=== PATIENT | female | born 1945 | race Hispanic/Latino ===

== ENCOUNTER → 2016-08-31 | Outpatient (CLI) | payer MEDICARE | END | disposition home or self-care (01) | LOC: GMAB 10:23 | PROVIDERS: ATTEND Family Medicine | DX: D50.9 Iron deficiency anemia, unspecified (principal); E53.8 Deficiency of other specified B group vitamins; I10 Essential (primary) hypertension; M54.10 Radiculopathy, site unspecified; Z79.891 Long term (current) use of opiate analgesic ==

== ENCOUNTER → 2017-03-01 | Outpatient (CLI) | payer MEDICARE ==
--- NOTE | 2017-03-03 14:15 | MAM ---
EXAM DESCRIPTION: 3D Screening BILATERAL : Digital Mammography. CLINICAL HISTORY: 71 years Female SCREENING . No complaints. No family history of breast cancer. Postmenopausal. No HRT. Bilateral cyst aspirations.. COMPARISON: 2-D digital screening bilateral studies 02/17/2016 and 12/06/2014. Report from prior examination also reviewed. TECHNIQUE: Bilateral CC and MLO projection full-field images, 3-D tomosynthesis digital mammographic technique. Also bilateral synthesized CC/ MLO full-field images. CAD not utilized. FINDINGS: The breast parenchymal density pattern is: Scattered areas of fibroglandular density. No skin thickening or nipple retraction bilateral solitary microcalcifications. Left axillary lymph nodes. Biopsy site marker 1200 clock position middle third left breast. Bilateral vascular calcifications. No focal, stellate mass or density, focal asymmetry , and no suspicious microcalcifications bilaterally. Stable mammograms compared to prior study, taking into account differences in mammographic technique IMPRESSION: BI-RADS CATEGORY: 2 - BENIGN FINDINGS. FOLLOW UP: Routine digital bilateral screening, one year interval from February 2017. Written communication explaining the IMPRESSION and follow-up, will be mailed to the patient and referring health care provider. According to the [employer], yearly mammograms are recommended starting at age 40 and continuing as long as a woman is in good health. Any breast change noted on a breast self-exam should be reported promptly to the patient's healthcare provider. Breast MRI is recommended for women with an approximately 20-25% or greater lifetime risk of breast cancer, including women with a strong family history of breast or ovarian cancer and women who have been treated for Hodgkin's disease. A negative mammographic report should not delay tissue diagnosis in patients with significant clinical history or physical findings. Extremely dense breast tissue limits the sensitivity of digital mammography. 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
== END ==
LOC: MAMMO 13:30
PROVIDERS: ATTEND Family Medicine
DX: Z12.31 Encounter for screening mammogram for malignant neoplasm of breast (principal)
CPT/HCPCS: 77063; G0202

== ENCOUNTER → 2017-03-02 | Outpatient (CLI) | payer MEDICARE | END | disposition home or self-care (01) | LOC: GMAB 10:44 | PROVIDERS: ATTEND Family Medicine | DX: D50.9 Iron deficiency anemia, unspecified (principal) ==

== ENCOUNTER → 2017-08-30 | Outpatient (CLI) | payer MEDICARE | LOC: GMAB 10:35 | PROVIDERS: ATTEND Family Medicine | DX: I10 Essential (primary) hypertension (principal) ==

== ENCOUNTER → 2017-11-30 | Outpatient (CLI) | payer MEDICARE | LOC: GMAE 10:44 | PROVIDERS: ATTEND Family Medicine | DX: R06.02 Shortness of breath (principal) ==

== ENCOUNTER → 2018-03-03 | Outpatient (CLI) | payer MEDICARE ==
--- NOTE | 2018-03-03 09:36 | US ---
US THYROID CLINICAL STATEMENT: NODULE. COMPARISON: None FINDINGS: Size right thyroid lobe: 3.9 x 1.6 x 1.2 cm Size left thyroid lobe: 3.7 x 1.6 x 1.3 cm Size isthmus: 0.2 cm Estimated total number of nodules greater than or equal to 1 cm: 1 Nodule 1: Size: 0.6 x 0.5 x 0.4 cm Location: Right Lower Composition: solid or almost completely solid: 2 points Echogenicity: hypoechoic: 2 points Shape: wider than tall: 0 points Margins: ill-defined: 0 points Echogenic foci: none: 0 points ACR Total Points: 4; ACR TI-RADS risk category: TR4 - moderately suspicious nodule. Nodule 2: Size: 1.0 x 0.6 x 0.5 cm Location: Left Upper Composition: solid or almost completely solid: 2 points Echogenicity: very hypoechoic: 3 points Shape: wider than tall: 0 points Margins: smooth: 0 points Echogenic foci: large comet tail artefact: 0 points ACR Total Points: 5; ACR TI-RADS risk category: TR4 - moderately suspicious nodule. No distinct solid or cystic masses in the soft tissues around the thyroid gland. No large calcifications or parenchymal edema. No overlying skin changes. Normal vascularity. IMPRESSION: 1. Nodule 1: ACR TI-RADS 2017 Category TR 4. Recommend: No further follow-up.. [facility] Best Practice guidelines following ACR TI-RADS 2017 recommendations. Please see below.* 2. Nodule 2: ACR TI-RADS 2017 Category TR4. Recommend: Follow-up ultrasound in 1 year. 3. The soft tissues around the thyroid gland are unremarkable. *ACR TI-RADS 2017 Recommendations: TR1: No FNA or follow up TR2: No FNA or follow up TR3: FNA if >/= 2.5 cm, follow up if 1.5 - 2.4 cm in 1, 3, and 5 years TR4: FNA if >/= 1.5 cm, follow up if 1.0 - 1.4 cm in 1, 2, 3, and 5 years TR5: FNA if >/= 1.0 cm, follow up if 0.5 - 0.9 cm every year for 5 years ACR TI-RADS recommends that no more than two nodules with the highest ACR TI-RADS total point should be biopsied and no more than four nodules should be followed. Electronically signed by: Torres Clarke MD 03/03/2018 9:35 AM LICENSING COORDINATOR
== END ==
LOC: US 07:47
PROVIDERS: ATTEND Family Medicine
DX: E04.1 Nontoxic single thyroid nodule (principal)

== ENCOUNTER → 2018-05-17 | Outpatient (CLI) | payer MEDICARE | LOC: GMAE 10:17 | PROVIDERS: ATTEND Family Medicine | DX: E04.1 Nontoxic single thyroid nodule (principal) ==

== ENCOUNTER → 2018-09-01 | Outpatient (CLI) | payer MEDICARE | LOC: GMAE 11:34 | PROVIDERS: ATTEND Family Medicine | DX: E03.9 Hypothyroidism, unspecified (principal) ==

== ENCOUNTER → 2018-11-03 | Outpatient (CLI) | payer MEDICARE ==
--- NOTE | 2018-11-04 08:40 | US ---
EXAM DESCRIPTION: Soft Tissue,Extremity: ULTRASOUND. CLINICAL HISTORY: 73 years Female STRAIN OF MUSCLE, FASCIA AND TENDON OF BICEP RIGHT ARM COMPARISON: None Available. TECHNIQUE: Transcutaneous scanning: Dunn-scale and Doppler modes. FINDINGS: The short head biceps tendon appears to be torn from its superior attachment in the upper muscle belly is contracted into the anterior right forearm. Fluid around the torn tendon and superior muscle. Ecchymosis on the overlying skin. No dominant solid mass. No abnormal vascularity. IMPRESSION: Complete tear of the short head right biceps tendon from its right clavicle origin, with retraction into the anterior upper right arm. Edema. Ecchymosis. Consider orthopedic consult and MRI scan of the upper right arm for better definition of injury. Electronically signed by: Torres Clarke MD 11/04/2018 8:37 AM CDT
== END ==
LOC: US 09:30
PROVIDERS: ATTEND Family Medicine
DX: S46.111A Strain of muscle, fascia and tendon of long head of biceps, right arm, initial encounter (principal)

== ENCOUNTER → 2018-11-18 | Outpatient (CLI) | payer MEDICARE ==
--- NOTE | 2018-11-18 09:12 | RAD ---
PROVIDED CLINICAL HISTORY/REASON FOR EXAM: M79.601 Findings: Number of images: Two Location: Right humerus No acute fracture or dislocation. No focal soft tissue swelling. Joint spaces are maintained. IMPRESSION: No evidence of acute process in the right humerus. Electronically signed by: Robert Juarez MD 11/18/2018 9:10 AM CDT
== END ==
LOC: RAD 08:50
PROVIDERS: ATTEND Orthopaedic Surgery
DX: M79.601 Pain in right arm (principal)

== ENCOUNTER → 2018-11-24 | Outpatient (CLI) | payer MEDICARE ==
--- NOTE | 2018-11-25 09:45 | MRI ---
MRI right humerus without contrast INDICATION: Bicep rupture arm pain TECHNIQUE: Noncontrast MR imaging right humerus FINDINGS: The elbow was not completely imaged. There is tendinosis of the distal bicep tendon but no distal rupture. The proximal bicep is detached and retracted to the mid humeral region with prominent adjacent fluid/hemorrhage. Mild osteoarthrosis of the shoulder with cystic change in the posterior glenoid. No rupture or retraction of the subscapularis. The bicep is retracted to the mid humeral region located approximately 11 cm distal to the humeral head. There is significant thinning/partial tearing of the supraspinatus and infraspinatus consider dedicated MRI of the shoulder as clinically indicated IMPRESSION: Proximal detachment/rupture long head bicep with retraction to the mid humeral region with prominent adjacent fluid and hemorrhage Significant appearing partial tears of the supraspinatus and infraspinatus consider dedicated MRI of the shoulder Electronically signed by: Magdy Newton MD 11/25/2018 9:41 AM CDT
== END ==
LOC: MRI 13:54
PROVIDERS: ATTEND Orthopaedic Surgery
DX: M75.101 Unspecified rotator cuff tear or rupture of right shoulder, not specified as traumatic (principal); S46.211A Strain of muscle, fascia and tendon of other parts of biceps, right arm, initial encounter

== ENCOUNTER → 2018-11-28 | Outpatient (CLI) | payer MEDICARE ==
--- NOTE | 2018-11-28 16:59 | MRI ---
EXAM DESCRIPTION: MRI right shoulder CLINICAL HISTORY: Shoulder pain. Rotator cuff tear COMPARISON: None. TECHNIQUE: Multiplanar, multisequence MR images of the right shoulder FINDINGS: Complete supraspinatus tendon tear. Articular sided fibers retracted to the glenohumeral joint level and bursal fibers to the mid humeral level. Severe muscle volume loss and grade 2 fatty infiltration Infraspinatus high-grade partial articular and interstitial tear sparing thin bursal fibers. Severe muscle volume loss and grade 2 fatty infiltration. Teres minor tendon and muscle are normal. High-grade subscapularis tendon tear sparing thin bursal fibers. Chronic thinning and fraying with subjacent osseous irregularity and mild edema in the lesser tuberosity. Moderate to severe muscle volume loss and grade 2 fatty infiltration. Long head biceps tendon is torn and retracted off the inferior edge of the [id number]. Tendon sheath containing fluid seen on the lower margin of the coronal and sagittal images, retraction to at least mid diaphysis of the humerus Expected blunting of the labral anchor. No acute labral detachment. Sublabral cystic change along the posterior inferior glenoid with a cyst measuring about 1 cm in greatest dimension. No high-grade glenohumeral chondrosis Mild acromioclavicular osteoarthritis with periarticular osteophytes. Type II acromion with prominent inferior lateral acromial spur IMPRESSION: Complete supraspinatus tendon tear. Contiguous high-grade partial articular and interstitial infraspinatus tendon tear Chronic high-grade partial tear of the subscapularis tendon sparing thin bursal fibers Complete long head biceps tendon tear retracted to at least the mid humeral level Electronically signed by: Martin Loomis MD 11/28/2018 4:57 PM CDT
== END ==
LOC: MRI 13:58
PROVIDERS: ATTEND Orthopaedic Surgery
DX: M75.101 Unspecified rotator cuff tear or rupture of right shoulder, not specified as traumatic (principal); S46.211A Strain of muscle, fascia and tendon of other parts of biceps, right arm, initial encounter

== ENCOUNTER → 2018-12-05 | Outpatient (CLI) | payer MEDICARE ==
--- NOTE | 2018-12-05 10:07 | RAD ---
EXAM DESCRIPTION: Hand,Left 3 Views CLINICAL HISTORY: 73 years Female, PAIN IN LEFT HAND COMPARISON: None. FINDINGS: Three views of the left hand show no acute fracture or malalignment. Joint space narrowing and osteophyte formation involving the first CMC joint and interphalangeal joint of the thumb with less advanced degenerative changes elsewhere in the left hand. No radiopaque foreign body or soft tissue gas. IMPRESSION: Polyarticular degenerative changes, worse at the first CMC joint and interphalangeal joint of the thumb. Electronically signed by: Crow Dee MD 12/05/2018 10:05 AM CDT
== END ==
LOC: RAD 08:46
PROVIDERS: ATTEND Orthopaedic Surgery
DX: M19.042 Primary osteoarthritis, left hand (principal)

== ENCOUNTER → 2019-01-16 | Outpatient (CLI) | payer MEDICARE ==
--- NOTE | 2019-01-16 16:34 | RAD ---
EXAM DESCRIPTION: Left wrist, 3 radiographs CLINICAL HISTORY: PAIN FINDINGS/ IMPRESSION: Fracture of the distal radial epiphysis across the base of the radial styloid. Minimal cortical offset End-stage arthrosis of the carpometacarpal joint of the thumb with [id number] contact. Radial subluxation of the metacarpal. Large marginal osteophytes Widening of the scapholunate interval consistent with scapholunate ligament tear. Positive ulnar variance predisposing to ulnar impaction. 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
== END ==
LOC: RAD 08:23
PROVIDERS: ATTEND Orthopaedic Surgery
DX: S59.202A Unspecified physeal fracture of lower end of radius, left arm, initial encounter for closed fracture (principal); M19.032 Primary osteoarthritis, left wrist; M67.932 Unspecified disorder of synovium and tendon, left forearm; M89.8X3 Other specified disorders of bone, forearm

== ENCOUNTER → 2019-03-02 | Outpatient (CLI) | payer MEDICARE ==
--- NOTE | 2019-03-02 10:33 | RAD ---
3 radiographs left wrist Indication: FRACTURE OF THE LOWER END OF LEFT RADIUS Comparison: January 16, 2019 Impression: Previous noted radial styloid fracture redemonstrated and now appears subacute in chronicity. There is progressive partial healing, however the fracture remains incompletely united at this time. Continued radiographic surveillance recommended. Degenerative changes throughout the wrist are stable. No acute fracture identified. Osteopenia. If this is a new finding, DEXA scan recommended as well as evaluation for possible osteoporosis treatment. Electronically signed by: Rodri Galvan MD 03/02/2019 10:32 AM [facility]
== END ==
LOC: RAD 08:25
PROVIDERS: ATTEND Orthopaedic Surgery
DX: S52.502D Unspecified fracture of the lower end of left radius, subsequent encounter for closed fracture with routine healing (principal); M85.832 Other specified disorders of bone density and structure, left forearm; M19.032 Primary osteoarthritis, left wrist

== ENCOUNTER → 2019-10-05 | Outpatient (CLI) | payer MEDICARE | LOC: GMAE 10:50 | PROVIDERS: ATTEND Family Medicine | DX: E03.9 Hypothyroidism, unspecified (principal); I10 Essential (primary) hypertension; E78.5 Hyperlipidemia, unspecified ==

== ENCOUNTER → 2020-01-11 | Outpatient (CLI) | payer MEDICARE ==
--- NOTE | 2020-01-16 10:07 | MAM ---
EXAM DESCRIPTION: 3D Screening BILATERAL : Digital Mammography. CLINICAL HISTORY: 74 years Female ANNUAL SCREENING . No complaints and no family history breast cancer. Menarche age 11. Childbirth age 22. Menopause age 45. Lateral cyst aspiration biopsy benign. HRT less than 5 years ago. Lifetime risk of developing breast cancer (Tyrer-Cuzick model)(%): 6.4. COMPARISON: 2-D digital screening bilateral mammography February 2017. TECHNIQUE: Bilateral CC and MLO projection full-field images, digital tomosynthesis mammographic technique. Bilateral digital 2-D full-field MLO images. CAD available for 2-D images. FINDINGS: The breast parenchymal density pattern is: Scattered areas of fibroglandular density. No skin thickening or nipple retraction. Bilateral solitary microcalcifications. Vascular calcifications. No new focal, stellate mass or density, focal asymmetry , and no suspicious microcalcifications bilaterally. Stable mammograms compared to prior study. IMPRESSION: Benign exam. BIRAD CATEGORY: 2 BENIGN FINDINGS. RECOMMENDATIONS: FOLLOW UP: Routine digital bilateral mammographic screening, one year interval from December 2019. Written communication explaining the IMPRESSION and follow-up, will be mailed to the patient and referring health care provider. According to the [employer], yearly mammograms are recommended starting at age 40 and continuing as long as a woman is in good health. Any breast change noted on a breast self-exam should be reported promptly to the patient's healthcare provider. Breast MRI is recommended for women with an approximately 20-25% or greater lifetime risk of breast cancer, including women with a strong family history of breast or ovarian cancer and women who have been treated for Hodgkin's disease. A negative mammographic report should not delay tissue diagnosis in patients with significant clinical history or physical findings. Extremely dense breast tissue limits the sensitivity of digital mammography. Electronically signed by: Torres Clarke MD 01/16/2020 10:06 AM CDT
== END ==
LOC: MAMMO 08:22
PROVIDERS: ATTEND Family Medicine
DX: Z12.31 Encounter for screening mammogram for malignant neoplasm of breast (principal)

== ENCOUNTER → 2020-03-05 | Outpatient (CLI) | payer MEDICARE | LOC: GMAE 10:58 | PROVIDERS: ATTEND Family Medicine | DX: M06.9 Rheumatoid arthritis, unspecified (principal) ==

== ENCOUNTER 2020-05-13 05:52 | Day surgery (SDC) | payer MEDICARE ==
[2020-05-13] MEDS ORDERED: LIDOCAINE 1% 10 ML VIAL INJ ONE ×2 (07:41→10:33)
[2020-05-13] MEDS ORDERED: BETAMETHASONE ACETATE/BETAMETH 6 MG/ML VIAL IM ONE ×2 (07:41→10:33)
[2020-05-13] MEDS ORDERED: BUPIVACAINE 0.5% 30 ML VIAL INJ ONE ×2 (07:42→10:33)
== END 2020-05-13 10:56 | disposition home or self-care (01) ==
LOC: AMB 05:52
PROVIDERS: ATTEND Family Medicine Sports Medicine
DX: M46.1 Sacroiliitis, not elsewhere classified (principal); J44.9 Chronic obstructive pulmonary disease, unspecified; E78.5 Hyperlipidemia, unspecified; I10 Essential (primary) hypertension; D64.9 Anemia, unspecified; Z88.8 Allergy status to other drugs, medicaments and biological substances; Z79.51 Long term (current) use of inhaled steroids; Z79.899 Other long term (current) drug therapy
CPT/HCPCS: 76000; G0260